=== PATIENT | female | born 1955 | race Hispanic/Latino ===

== ENCOUNTER 2018-01-19 23:50 | Emergency (ER) | payer MEDICARE, OTHER ==
[~2018-01-19] VITALS: Ht 154.9 cm; Wt 79.8 kg
[2018-01-20 00:50] LABS: BASOPHILS % 0.3 % (0.0-1.0); EOSINOPHILS # (AUTO) 0.4 (0.0-0.4); EOSINOPHILS % 6.6 % (0.0-6.0); HEMATOCRIT 31.9 % (34.2-44.1); HEMOGLOBIN 10.9 g/dL (12.0-16.0); LYMPHOCYTES % 16.8 % (18.0-39.1); MEAN CORPUSCULAR HEMOGLOBIN 34.4 pg (28-32); MEAN CORPUSCULAR HGB CONC 34.2 g/dL (31-35); MEAN CORPUSCULAR VOLUME 100.6 fL (81-99); MONOCYTES # (AUTO) 0.4 (0.2-0.8); MONOCYTES % 6.3 % (4.4-11.3); NEUTROPHILS # (AUTO) 4.1 (2.1-6.9); NEUTROPHILS % 69.8 % (38.7-80.0); PLATELET COUNT 149 x10e3/uL (140-360); RED BLOOD COUNT 3.17 x10e6/uL (3.6-5.1); RED CELL DISTRIBUTION WIDTH 13.7 % (11.7-14.4)
[2018-01-20 00:58] LABS: INR 1.06; PARTIAL THROMBOPLASTIN TIME 21.3 seconds (23.8-35.5)
[2018-01-20 01:08] LABS: ALBUMIN 3.5 g/dL (3.5-5.0); ALBUMIN/GLOBULIN RATIO 0.6 (0.8-2.0); ANION GAP 21.9 mmol/L (8-16); CREATININE, SERUM 8.1 mg/dL (0.57-1.11); MAGNESIUM 2.5 MG/DL (1.3-2.1); POTASSIUM 5.9 mmol/L (3.5-5.1)
[2018-01-20 01:16] LABS: CREATINE KINASE MB 1.1 ng/mL (0-5.0)
--- NOTE | 2018-01-20 01:36 | Diagnostic Imaging Report ---
CHEST SINGLE (PORTABLE), 01/20/2018 12:26 AM Technique: CHEST SINGLE (PORTABLE) Comparison: None available. Clinical history: End-stage renal disease Findings: Limited single view portable technique with soft tissue attenuation. Impression: 1. Mildly enlarged cardiomediastinal silhouette. Vascular stent projects over the expected left brachiocephalic vein. 2. No edema. Elevated left hemidiaphragm with overlying opacity, most likely atelectasis or scarring. 3. Trace left pleural effusion or thickening. Signed by: Dr Lu Valencia MD on 01/20/2018 1:33 AM
[2018-01-20] MEDS ORDERED: HYDROCODONE/APAP 7.5MG-325MG 1 EA TAB PO ONE (03:30)
[2018-01-20] MEDS ORDERED: SOD POLYSTYRENE SULFONATE SUSP 15 GM/60 ML BTL PO ONE (04:15)
--- NOTE | 2018-01-20 10:35 | Cardiology Report ---
DATE OF STUDY: January 20, 2018 DOPPLER SCAN OF LOWER EXTREMITY VEINS The lower extremity veins were interrogated using the duplex scanning method. The veins were compressible. There was no definite deep venous thrombosis. CONCLUSION: No definite deep venous thrombosis involving the lower extremity veins bilaterally. Job#: [id number] RI cc:GODWIN LAND MD
--- NOTE | 2018-01-20 10:38 | Cardiology Report ---
DATE OF STUDY: January 20, 2018 DOPPLER SCAN OF THE LOWER EXTREMITY ARTERIES Segmental pressure measurements were not submitted for interpretation. Duplex scan showed biphasic and triphasic waveforms throughout. CONCLUSION 1. No high-grade stenosis or flow impairment involving the major arteries of the lower extremities bilaterally. 2. No ankle brachial indices submitted for interpretation. Job#: [id number] RI cc:GODWIN LAND MD
== END 2018-01-20 05:00 ==
LOC: ER 23:50
DX: M79.662 Pain in left lower leg (principal); M79.661 Pain in right lower leg; E87.5 Hyperkalemia; I12.0 Hypertensive chronic kidney disease with stage 5 chronic kidney disease or end stage renal disease; E11.22 Type 2 diabetes mellitus with diabetic chronic kidney disease; N18.6 End stage renal disease; Z99.2 Dependence on renal dialysis; M62.838 Other muscle spasm
CPT/HCPCS: 36415; 71045; 80053; 82550; 82553; 83735; 84484; 85025; 85610; 85651; 85730; 93005; 93925; 93970; 99283